=== PATIENT | male | born 1960 | race Caucasian/White ===

== ENCOUNTER 2017-09-06 20:12 | Emergency (ER) | payer OTHER, BC ==
[2017-09-06 20:27] VITALS: BP 187/96
--- NOTE | 2017-09-06 21:00 | ERNOTE ---
Medical Problem HPI - Narrative Date of Service: 09/06/17 - General Chief Complaint: General Assessment Time Seen by Provider: 09/06/17 20:38 Source: patient - Immun/Allergies/Home Medications Immunizations: IMMUNIZATION HX Immunizations Up to Date Yes History of Influenza Vaccine Yes Hx Pneumococcal Vaccination No Allergies/Adverse Reactions: Allergies codeine Adverse Reaction (Mild, Verified 09/06/17 20:23) ALTERED MENTAL STATUS Home Medications: HOME MEDICATIONS Aspirin/Calcium Carbonate/Mag [Aspirin Buffered 325 mg Tab] 325 mg PO DAILY [Last Taken Unknown] Atorvastatin Calcium [Lipitor] 40 mg PO ONCE 12/20/16 [Last Taken Unknown] Clopidogrel Bisulfate [Plavix] 75 mg PO DAILY 12/20/16 [Last Taken Unknown] Metoprolol Tartrate [Lopressor] 50 mg PO BID 12/20/16 [Last Taken Unknown] Sertraline HCl [Zoloft] 100 mg PO DAILY 12/20/16 [Last Taken Unknown] glipiZIDE [Glipizide Xl] 10 mg PO BID 12/20/16 [Last Taken Unknown] Cholecalciferol (Vitamin D3) [Vitamin D3] 5,000 unit PO DAILY 09/06/17 [Last Taken Unknown] Glimepiride 4 mg PO DAILY 09/06/17 [Last Taken Unknown] Insulin Glargine,Hum.rec.anlog [Lantus] 25 units SC BID 09/06/17 [Last Taken Unknown] Pantoprazole Sodium 40 mg PO DAILY 09/06/17 [Last Taken Unknown] - History of Present History Narrative: 57-year-old male presents to the emergency room for right-sided rib pain. Patient states he was moving something in his garage when he felt a pop in his right rib. Patient states that he is not in an extreme amount of discomfort, but does hurt when he pushes on the area. Date (Duration): 09/06/17 Timing: intermittent Modifying Factors - (Improves): Present: rest Modifying Factors - (Worsens): Present: movement Review of Systems - Review of Systems Constitutional: Present: no symptoms reported EYE: Present: no symptoms reported ENT: Present: no symptoms reported Respiratory: Present: See HPI, other - right lower rib pain Cardiology: Present: no symptoms reported Gastrointestinal/Abdominal: Present: no symptoms reported Genitourinary: Present: no symptoms reported Musculoskeletal: Present: See HPI Skin: Present: no symptoms reported Neurological: Present: no symptoms reported Endocrine: Present: no symptoms reported Hematologic/Lymphatic: Present: no symptoms reported Psych: Present: no symptoms reported All Other Systems: All systems neg except as marked - Patient's Past Medical History Patient History - Medical: Diabetes Type 2, GERD, Other Patient History - Cardiac/Respiratory: Other Patient History - Cancer: No Hx of Cancer Patient History - Surgical Procedures: Cardiac stent Patient History - Other: None - Social History Living Situations: home Abuse History: No History of abuse Psych History: Hx of Depression, Current tx/ever been on anti-depressants or anti-anxiety meds Smoking Status: Never smoker Have you smoked in the past 12 months: No Do you dip or chew tobacco: No Alcohol Use: none Drug Use: none - Immunizations Immunizations Up to Date: Yes Hx Pneumococcal Vaccination: No History of Influenza Vaccine: Yes Physical Exam - Physical Exam Narrative: Patient has good bilateral movement of chest wall with breathing. Patient able to take a deep breath without any problems. Patient is only tender when area is palpated firmly. Patient denies shortness of breath or any other symptoms at this time. General Appearance: Present: wd/wn, alert, no apparent distress Head Exam: Present: normal inspection, no evidence of injury Eye Exam: Normal inspection: bilateral, PERRL: bilateral, EOMI: bilateral Ears, Nose, Throat: Present: normal ENT inspection, normal pharynx Neck: Present: normal inspection, nontender, supple, full range of motion Respiratory: Present: no respiratory distress, normal breath sounds, no accessory muscle use, lungs clear, chest tenderness. Absent: respiratory distress, accessory muscle use, decreased breath sounds, expiration (prolonged) , crackles, rales, rhonchi, stridor, wheezing Rectal Exam: Present: nontender, normal rectal tone Male Genitals Exam: Present: normal genitalia, normal prostate, no hernia Back Exam: Present: normal inspection, normal range of motion, no CVA tenderness , no vertebral tenderness Extremity Exam: Present: normal inspection, non-tender, normal range of motion, no edema Neurological Exam: Present: alert, oriented, normal mood/affect, no motor/ sensory deficits Skin Exam: Present: normal color, warm/dry Lymphatic Exam: Present: no adenopathy ED Progress - Vital Signs Patient's Vital Signs:: I have reviewed the patient's vital signs. Vital Signs: Vital Signs 09/06/17 20:23 Temperature 36.4 C L Pulse Rate 72 Respiratory 15 Rate Blood Pressure 187/96 O2 Sat by Pulse 98 Oximetry - Progress/Reassessment Chief Complaint: General Assessment Progress:: Improved Plan - Plan Plan: I do not feel an x ray is warranted at this time. patient has bilateral chest wall movement that is equal, lungs are clear, and patient able to breath with out pain. ED attending agrees. patient agrees to return to ED if he becomes SOB or has increased pain. Departure Clinical Impression: Rib pain on right side - Departure Disposition: Home Follow Up Needed Condition: Stable Instructions: Chest Wall Pain Additional Instructions: Continue previous home medications as prescribed. Follow up with your primary care provider in the next 2-3 days if needed. Return to the emergency room if he develop any more increase in pain or shortness of breath. He may take over- the-counter pain medications as needed for pain. Referrals: Lara Jones MD [Primary Care Provider] -
== END 2017-09-06 21:02 | disposition home or self-care (01) ==
LOC: ER 20:12
DX: R07.81 Pleurodynia (principal); E11.9 Type 2 diabetes mellitus without complications; K21.9 Gastro-esophageal reflux disease without esophagitis; X58.XXXA Exposure to other specified factors, initial encounter; Y93.89 Activity, other specified; Y92.008 Other place in unspecified non-institutional (private) residence as the place of occurrence of the external cause